=== PATIENT | female | born 1990 | race Caucasian/White ===

== ENCOUNTER 2021-08-25 08:06 | Outpatient (REF) | payer OTHER, SELFPAY ==
[2021-08-25 11:37] LABS: Hematocrit 45.3 % (37.0-47.0); Hemoglobin 14.8 g/dl (12.0-16.0); Mean Corpuscular HGB Conc 32.7 g/dl (31.0-35.0); Mean Corpuscular Hemoglobin 28.5 pg (27.0-33.0); Mean Corpuscular Volume 87.1 fL (80.0-98.0); Mean Platelet Volume 11.5 fL (9.4-12.3); Platelet Count 278 X10*3/uL (160-400); Red Cell Distribution Width 12.4 % (11.0-16.0); White Blood Count 6.6 X10*3/uL (4.8-10.8)
[2021-08-25 11:48] LABS: Alanine Aminotransferase 14 U/L (0-31); Albumin Level 4.3 g/dL (3.5-5.0); Alkaline Phosphatase 77 U/L (39-117); Anion Gap 10 (12-20); Aspartate Amino Transferase 13 U/L (5-31); Bilirubin Total 0.5 mg/dL (0.0-1.0); Blood Urea Nitrogen 8 mg/dL (9-16); Calcium 9.6 mg/dL (8.4-10.2); Carbon Dioxide 27 mmol/L (22-29); Chloride 105 mmol/L (96-108); Cholesterol 196 mg/dL; Estimated Glomerular Filt Rate > 60; Glucose Fasting 89 mg/dL (60-99); HDL Cholesterol 46 mg/dL; LDL Cholesterol Calculated 134 mg/dl; Potassium 4.4 mmol/L (3.3-5.1); Sodium 138 mmol/L (135-145); Total Protein 7.5 g/dL (6.5-8.0); Triglycerides 81 mg/dL
[2021-08-25 12:09] LABS: TSH reflex Free T4 2.48 uIU/mL (0.32-4.0)
== END 2021-08-25 08:07 | disposition home or self-care (01) ==
LOC: HO.WFDLDS 08:06
PROVIDERS: Visit Provider Hospitalist
DX: Z00.00 Encounter for general adult medical examination without abnormal findings (principal)
CPT/HCPCS: 36415; 80053; 80061; 84443; 85027

== ENCOUNTER 2021-09-10 09:09 | Outpatient (REF) | payer OTHER, SELFPAY ==
[2021-09-11 11:08] LABS: BV Int Neg Control Negative (Negative); BV Int Pos Control Positive (Positive)
[2021-09-11 12:53] LABS: CT PCR NOT DETECTED (Not Detect.); NG PCR NOT DETECTED (Not Detect.)
== END 2021-09-10 09:10 | disposition home or self-care (01) ==
LOC: HO.LAB 09:09
PROVIDERS: Visit Provider Advanced Practice Midwife
DX: Z01.419 Encounter for gynecological examination (general) (routine) without abnormal findings (principal); Z20.2 Contact with and (suspected) exposure to infections with a predominantly sexual mode of transmission; Z97.5 Presence of (intrauterine) contraceptive device
CPT/HCPCS: 87480; 87491; 87510; 87591; 87660

== ENCOUNTER 2021-11-18 10:57 | Outpatient (REF) | payer OTHER, SELFPAY ==
[2021-11-18 15:00] LABS: TSH reflex Free T4 2.78 uIU/mL (0.32-4.0)
== END 2021-11-18 10:58 | disposition home or self-care (01) ==
LOC: HO.WFDLDS 10:57
PROVIDERS: Visit Provider Hospitalist
DX: R22.1 Localized swelling, mass and lump, neck (principal)
CPT/HCPCS: 36415; 84443

== ENCOUNTER 2021-11-19 15:16 | Outpatient (REF) | payer OTHER, SELFPAY ==
--- NOTE | ~2021-11-19 | US_ITS ---
EXAMINATION: US SOFT TISSUE NECK CLINICAL INFORMATION: Localized swelling in the neck. COMPARISON: None TECHNIQUE: Ultrasound of the neck soft tissues is performed with high- frequency carpenter-scale imaging and color Doppler. FINDINGS: No cystic or solid abnormality is seen. There is no lymphadenopathy. The soft tissues are unremarkable. The left internal jugular vein is patent without abnormality. Limited visualization of the thyroid gland showed no overt abnormality. US/US soft tiss head and/or neck IMPRESSION: No soft tissue abnormality in the region of concern in the left neck. * If these findings persist or enlarge, short-term repeat targeted soft tissue ultrasound can be performed as clinically indicated to assess for change.
== END 2021-11-19 15:17 | disposition home or self-care (01) ==
LOC: HO.US 15:16
PROVIDERS: Visit Provider Hospitalist
DX: R22.1 Localized swelling, mass and lump, neck (principal)
CPT/HCPCS: 76536

== ENCOUNTER 2021-12-23 12:27 | Outpatient (REF) | payer OTHER, SELFPAY ==
[2021-12-23 14:34] LABS: HCG Quantitative < 2 mIU/mL
== END 2021-12-23 12:28 | disposition home or self-care (01) ==
LOC: HO.WFDLDS 12:27
PROVIDERS: Visit Provider Hospitalist
DX: N91.2 Amenorrhea, unspecified (principal)
CPT/HCPCS: 36415; 84702

== ENCOUNTER 2022-09-14 09:09 | Outpatient (REF) | payer OTHER, SELFPAY ==
[2022-09-14 15:25] LABS: CT PCR NOT DETECTED (Not Detect.); NG PCR NOT DETECTED (Not Detect.)
[2022-09-15 12:37] LABS: BV Int Neg Control Negative (Negative); BV Int Pos Control Positive (Positive)
[2022-09-16 22:54] LABS: HPV mRNA E6/E7 rflx Not Detected (Not Detected)
== END 2022-09-14 09:10 | disposition home or self-care (01) ==
LOC: HO.LNP 09:09
PROVIDERS: PCP Hospitalist; Visit Provider Advanced Practice Midwife
DX: Z01.419 Encounter for gynecological examination (general) (routine) without abnormal findings (principal); Z11.51 Encounter for screening for human papillomavirus (HPV); Z20.2 Contact with and (suspected) exposure to infections with a predominantly sexual mode of transmission
CPT/HCPCS: 0353U; 87480; 87510; 87624; 87660; 88142

== ENCOUNTER 2023-02-09 08:18 | Outpatient (AMB) | payer OTHER, SELFPAY ==
--- NOTE | 2023-02-09 08:28 | A.OFFVIS_ITS ---
Intake Vital Signs 02/09/23 08:31 Height 5 ft 9 in Weight 219 lb 8 oz BMI 32.4 BP 98/74 Blood Pressure Location Rt brachial Position Sitting Pulse 93 Pulse Source Pulse Oximeter Pulse Oximetry (%) 99 Oxygen Delivery Method Room Air Intake Visit Reasons: [id number] Intake Note: Patient presents for migraines. Patient states I've been getting them since I was a child they have gotten a little better but when i do get them I need to be in a dark room, my vision gets blurry and I'm very sensitive with sound and light. Allergies amoxicillin Allergy (Intermediate, Verified 02/09/23 08:33) Hives Penicillins Allergy (Intermediate, Verified 02/09/23 08:33) Hives mushroom Adverse Reaction (Intermediate, Verified 02/09/23 08:33) Itching Medication List - Last Reconciled 02/09/23 by MOSHE Mazariegos aripiprazole 2 mg PO DAILY buspirone 7.5 mg PO BID levonorgestrel (Kyleena) intrauterine misoprostol 200 mcg vaginal ONCE HPI HPI Comments History of Present Illness Details Right-handed 32-yr-old female presents for new pt evaluation of headache disorder and ? of seizure disorder. Pt reports she has had migraine since childhood- around 7-8 yrs old. As a child, she was having bouts of passing out which were attributed to severe migraine and dehydration. Syncope has not happened since childhood. More recently, she has been havingless frequent but more severe migraine attacks. Headache questionnaire: Preceding causes? None Previous work-up? None Typical headache characteristics: Prodrome symptoms? None Aura? Sometimes may see stars in her peripheral vision, rarely she will see yenny stars across her whole visual filed- seconds during beginning of headache. Location, quality, characteristics? Starts behind the left eye, can have a shooting pain from the left eye to right ear. May also have light seem brighter and hyperacusia. Then progresses into a band of throbbing/pressure pain- like her head is inflated. Sometimes at start of the migraine- she has a [place] phenomenon where it looks like everything is getting smaller through a hallway. Pain intensity? Usually 6-7/10. At worst 9-10/10 Associated symptoms? Photophobia, phonophobia, osmophobia, nausea, allodynia, brain fog, some dizziness. Focal weakness, Parethesias, Autonomic s/s? Some numbness/tingling in left eye region. More prone to drop things from her left hand. Postdrome? Residual s/s Triggers? Maybe not drinking enough. Any positional, valsalva, exertional, sexual activity triggers? None Menstrual triggers? Sometimes a small headache at onset of menses Time of day? Mid-afternoon Duration? 1/2 a day to 3 days. Frequency? 5 headache per month. One severe attack per month. How does headache impact your life? 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 Works in [employer] service for an [employer]. Current acute medication use/interventions: Tylenol Previous acute medication use: None Current preventative medication use: None Previous preventative medication use: None Non-pharmacological interventions: Ice, rest Other history of headache disorder? None History of musculoskeletal disorders or injury? Had a remote back injury- aggravated her sciatica while cheerleading at age [age]. History of concussion/head injury? One concussion at age 22- from cheerleading. History of mood disorder? Depression, anxiety. Being evaluated for bipolar- has a family h/o. History of sleep disorder? Sleep varies- can sleep about 5hrs and then wkaes up- not always able to fall back asleep. In the evening, easily dozes off. Believes she snores. History of respiratory disease? None History of CV disease? None History of coagulopathy? None History of endocrine or metabolic disease? None History of seizure? No known h/o seizure. She has episodes where all of a sudden she smells warm , f/b a slight headache. She has other episodes of microskeletal vibrations a/w zoning out (hears people but does not retain what they say). This lasts about 2 minutes. Not a/w headache. Once this occurred while she was standing, and she was able to sit down w/o incident. Afterwards, she feels like the wind was knocked out of her x's 5-10 minutes. This may occur every other month, but sometimes may repeat a few times in a week. This started about 5 yrs ago. History of GI disorder? Prone to diarrhea. Family planning? She has an IUD- is due to come out soon- no plans for children at this time. Family history of migraine or other headache disorder? 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 Sexual orientation: Straight/Heterosexual Gender identity: Female Cognitive needs: No Hearing needs: No Vision needs: No Female Reproductive History Menstrual Age of Menarche: 16 Review of Systems Const Details: See scanned ROS form Physical Exam Vital Signs: Last Vital Signs Pulse 93 02/09/23 08:31 BP 98/74 02/09/23 08:31 Pulse Ox 99 02/09/23 08:31 Oxygen Delivery Method Room Air 02/09/23 08:31 BMI result Body Mass Index 32.4 Const Orientation/consciousness: patient oriented x3 HEENT Head: Yes normocephalic Resp Effort & Inspection: normal respiratory effort and able to speak in complete sentences Neuro General: patient oriented x3 Cranial nerves: Yes CN's II-XII intact bilaterally Cognition (Neuro): normal cognition Gait exam (Neuro): Normal gait present Motor exam (neuro): 5/5 motor strength present throughout Deep tendon reflexes (DTR's): Right triceps reflex intensity grade: 2+, Left triceps reflex intensity grade: 2+, Rt Biceps (C5, C6): 2+, Left biceps reflex intensity grade: 2+, Right brachioradialis reflex intensity grade: 2+, Left brachioradialis reflex intensity grade: 2+, Right patellar reflex intensity grade: 2+ and Left patellar reflex intensity grade: 2+ Coordination: [id number] test normal, tandem gait normal and Romberg test negative Pupils: Normal pupillary reactivity/response: bilateral Psych Appearance: grossly normal Mental Status: mental status grossly normal Speech and movement: Normal speech and movement present Affect: normal affect Attitude: cooperative Thought process: Normal thought process present Assessment & Plan Assessment & Plan (1) Migraine with aura: Code(s): G43.109 - Migraine with aura, not intractable, without status migrainosus (2) Snoring: Code(s): R06.83 - Snoring (3) Excessive daytime sleepiness: Comment: ESS 10 Code(s): G47.19 - Other hypersomnia (4) Sleep disorder: Code(s): G47.9 - Sleep disorder, unspecified (5) Visual aura: Code(s): H53.9 - Unspecified visual disturbance (6) Olfactory hallucinations: Code(s): R44.2 - Other hallucinations (7) Altered mental status: Code(s): R41.82 - Altered mental status, unspecified Plan Pt advised to undergo brain MRI w/wo- to assess for central/epileptic etiologies of stereotypic episodes of AMS a/w vibration sensation, olfactory hallucination, migraine a/w [place] phenomenon. Pt advised to undergo EEG. Pt advised to undergo HST to assess for sleep apnea. For overall headache management: Discussed importance of good self-care, including but not limited to maintaining a healthy diet, adequate fluid intake, adequate sleep, and engaging in regular physical activity. For headache triggers: Track headaches, especially after any treatment regimen changes. Migraine [employer] is one of many headache tracking apps. For acute headache treatment: Discussed importance of taking acute medications at the first sign of headache, however stressed importance of avoiding acute medication overuse (especially with combined headache medications). Trial Sumatriptan 100mg tab, 1/2 - 1 tab (50-100mg) at onset of headache, may repeat in 2 hours. Max of 2 tabs (200mg) per 24 hours. May adjunct with OTC Tylenol 650mg q 4 hours, Ibuprofen 600mg q 6 hours, or Naproxen 440mg q 12 hrs prn. Reviewed potential adverse effects of triptans, including but not limited to nausea, fatigue, chest tightness/tingling (usually passes within a few minutes), medication overuse headaches. Previous acute migraine medication trials: Tylenol or Excedrin- ineffective. Acute migraine medication contraindications: None at this time For headache prevention medication: Discussed that preventative medications should be taken routinely as prescribed for best effect, it may take several weeks for full effect to take effect. Start Riboflavin 400mg qam Start Magnesium 400mg qhs- may hold for loose stools Previous migraine prevention medication trials: None Migraine prevention medication contraindications: Amitriptyline- would need psychiatry clerance d/t ? of bipolar d/o. Future considerations- Topiramate or Propranolol. Pt to follow-up in 3 months or sooner prn. Orders: Orders EEG electroencephalogram 02/09/23 G43.109 - Migraine with aura, not intractable, without status migrainosus, H53.9 - Unspecified visual disturbance, R41.82 - Altered mental status, unspecified, R44.2 - Other hallucinations MR head/brain wo/w con 02/09/23 G43.109 - Migraine with aura, not intractable, without status migrainosus, H53.9 - Unspecified visual disturbance, R41.82 - Altered mental status, unspecified, R44.2 - Other hallucinations RT home sleep study 02/09/23 G47.19 - Other hypersomnia, G47.9 - Sleep disorder, unspecified, R06.83 - Snoring Medications: New riboflavin (vitamin B2) 400 mg PO DAILY 30 tabs 6RF 30 days magnesium oxide may hold for loose stools 400 mg PO BEDTIME 30 tabs 6RF 30 days sumatriptan succinate 50 - 100 mg orally at onset of headache, may repeat in 2 hrs PRN; max 2 tabs per day or 4 tabs/week (may take with Ibuprofen) 12 tabs 6RF migraine headache 30 days Coding Level of Care Code New Pt Level 4 (62479) Diagnoses Migraine with aura G43.109 Snoring R06.83 Excessive daytime sleepiness G47.19 Sleep disorder G47.9 Visual aura H53.9 Olfactory hallucinations R44.2 Altered mental status R41.82
[2023-02-09 08:31] VITALS: BP 98/74; PULSE 93; O2SAT 99; BMI 32.4
== END 2023-02-09 09:36 | disposition home or self-care (01) ==
PROVIDERS: PCP Hospitalist; Visit Provider Nurse Practitioner Family
DX: G43.109 Migraine with aura, not intractable, without status migrainosus (principal); R06.83 Snoring; G47.19 Other hypersomnia; G47.9 Sleep disorder, unspecified; H53.9 Unspecified visual disturbance; R44.2 Other hallucinations; R41.82 Altered mental status, unspecified
CPT/HCPCS: 99204

== ENCOUNTER → 2023-02-09 08:18 | Outpatient (BNVA) | payer OTHER, SELFPAY | PROVIDERS: PCP Hospitalist; Visit Provider Nurse Practitioner Family ==

== ENCOUNTER 2024-01-06 08:26 | Outpatient (REF) | payer OTHER, SELFPAY ==
[2024-01-06 09:32] LABS: Cholesterol 227 mg/dL (<200); HDL Cholesterol 44 mg/dL (>40); LDL Cholesterol Calculated 158 mg/dL (<100); Triglycerides 129 mg/dL (<150)
[2024-01-06 10:57] LABS: Estimated Average Glucose 100 mg/dL; Hemoglobin A1c % 5.1 % (<6.0)
== END 2024-01-06 08:27 | disposition home or self-care (01) ==
LOC: HO.LAB 08:26
PROVIDERS: PCP Hospitalist; Visit Provider Registered Nurse
DX: Z79.899 Other long term (current) drug therapy (principal)
CPT/HCPCS: 36415; 80061; 83036

== ENCOUNTER 2024-02-21 14:46 | Outpatient (AMB) | payer OTHER, SELFPAY ==
--- NOTE | 2024-02-21 14:46 | A.OFFVIS_ITS ---
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: No Information Interpreted: clinical only Drift Miner: Drift Miner Present Allergies amoxicillin Allergy (Intermediate, Verified 02/21/24 14:46) Hives Penicillins Allergy (Intermediate, Verified 02/21/24 14:46) Hives mushroom Adverse Reaction (Intermediate, Verified 02/21/24 14:46) Itching Medication List - Last Reconciled 02/21/24 by Marylou Benedict CNM aripiprazole 2 mg PO DAILY buspirone 7.5 mg PO BID levonorgestrel (Kyleena) intrauterine magnesium oxide 400 mg PO BEDTIME 30 days riboflavin (vitamin B2) 400 mg PO DAILY 30 days Is last menstrual period known: Yes Last menstrual period: 02/19/24 HPI HPI Kyleena Removal Consult: Details: This is a tele visit to discuss patient's Kyleena and removing it it has many years now and she was going to remove it last year the before and she does not live what happened she was traumatized by the insertion process so the plan to replace it by using misoprostol by premedication ahead of time but now she just wants it out and she is hoping that maybe she could start pills she does get migraines with aura as though they have been better so she does not need to take any medication unless they occur and they have not recently but she does have a contraindication to have OCPs she does have anxiety and depression and she is on medication for that which is of mild contraindication but not absolute. She does take medication for that every evening so she thinks she would be better taking pills currently she is not contraceptive thing she is on that 3rd day of her period right now so today would be a perfect days her to start pills and I am going to prescribe progestin only pills for her and I reviewed that they can be on for giving if she misses a pill so she should use a backup method if she ever does. She still wants the Kyleena it removed and if that can be arranged to remove this week while her period is on that would be great or it could be removed at any time or with her next period we will see her in about 3 months for her pill check visit as well. 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 Sexual orientation: Straight/Heterosexual Gender identity: Female Cognitive needs: No Hearing needs: No Vision needs: No Female Reproductive History Menstrual Age of Menarche: 16 Duration of menses: 3-5 days Date of last menstrual period: 02/19/24 control method: progestin IUCD Telehealth Telehealth Telehealth Platform: Telephone Location of provider rendering services: practice address Location of patient: address on file Patient Identification confirmed using: Name, : Yes Telehealth method: voice only Patient verbally consented to treatment: Yes Patient verbally consented to billing insurance company: Yes Patient informed of any privacy concerns related to visit: Yes Minutes spent on Phone/Video with Pt.: 25 Assessment & Plan Assessment & Plan (1) Presence of 13.5 mg levonorgestrel-releasing intrauterine device (IUD): Comment: Inserted 2014, periods and midcycle ovulatory symptoms have returned. Replacement is planned with next menses. 09/14/22-periods have become very regular in last year, using pullout currently. previous insertion was traumatic will definitely plan replacement with menses and with additional misoprostol dose before procedure,; 02/21/2024 patient now wants it will start POPs instead. We will remove Kyleena when possible, with menses if easily arranged, but not necessary. Code(s): Z97.5 - Presence of (intrauterine) contraceptive device Category: Social Hx (2) Cervical cancer screening: Comment: had neg pap 2019 elsewhere, next pap 2022-done 09/14/22= neg w neg hpv. Code(s): Z12.4 - Encounter for screening for malignant neoplasm of cervix Category: Medical Plan This is a tele visit to discuss patient's Kyleena and removing it it has many years now and she was going to remove it last year the before and she does not live what happened she was traumatized by the insertion process so the plan to replace it by using misoprostol by premedication ahead of time but now she just wants it out and she is hoping that maybe she could start pills she does get migraines with aura as though they have been better so she does not need to take any medication unless they occur and they have not recently but she does have a contraindication to have OCPs she does have anxiety and depression and she is on medication for that which is of mild contraindication but not absolute. She does take medication for that every evening so she thinks she would be better taking pills currently she is not contraceptive thing she is on that 3rd day of her period right now so today would be a perfect days her to start pills and I am going to prescribe progestin only pills for her and I reviewed that they can be on for giving if she misses a pill so she should use a backup method if she ever does. She still wants the Kyleena it removed and if that can be arranged to remove this week while her period is on that would be great or it could be removed at any time or with her next period we will see her in about 3 months for her pill check visit as well. Medications: New norethindrone (contraceptive) 0.35 mg PO DAILY 84 tabs 3RF Coding Level of Care Code Tele Est Pt Level 3 (27534) Diagnoses Presence of 13.5 mg levonorgestrel-releasing intrauterine device (IUD) Z97.5 Cervical cancer screening Z12.4 Time Spent (min) 35 Comment 2cr/25 speaking w pt/8 charting
== END 2024-02-21 15:51 | disposition home or self-care (01) ==
LOC: HO.HWSM 14:46
PROVIDERS: PCP Hospitalist; Visit Provider Advanced Practice Midwife
DX: Z97.5 Presence of (intrauterine) contraceptive device (principal); Z12.4 Encounter for screening for malignant neoplasm of cervix
CPT/HCPCS: 99213

== ENCOUNTER 2024-03-14 10:53 | Outpatient (AMB) | payer OTHER, SELFPAY ==
[2024-03-14 11:01] VITALS: BP 110/68; BMI 34.7
--- NOTE | 2024-03-14 11:01 | A.OFFVIS_ITS ---
Vital Signs 03/14/24 11:01 Height 5 ft 9 in Weight 235 lb BMI 34.7 BP 110/68 Intake Visit Reasons: IUD removal/pill start Legal Support Assistant Required: No Legal Support Assistant Services: Legal Support Assistant Present Information Interpreted: clinical only General Counsel: General Counsel Present Allergies amoxicillin Allergy (Intermediate, Verified 03/14/24 11:04) Hives Penicillins Allergy (Intermediate, Verified 03/14/24 11:04) Hives mushroom Adverse Reaction (Intermediate, Verified 03/14/24 11:04) Itching Medication List - Last Reconciled 03/14/24 by Marylou Benedict CNM aripiprazole 2 mg PO DAILY buspirone 7.5 mg PO BID levonorgestrel (Kyleena) intrauterine magnesium oxide 400 mg PO BEDTIME 30 days norethindrone (contraceptive) 0.35 mg PO DAILY riboflavin (vitamin B2) 400 mg PO DAILY 30 days Is last menstrual period known: Yes Last menstrual period: 02/19/24 HPI HPI IUD removal/pill start: Details: Patient is here to remove her Kyleena IUD she definitely wants it removed and she is become very anxious about anticipating the pain of this what she wants it removed because it needs to be. She did not start the control pills yet because her pharmacy did not call her to say they were ready and she only recently pick them up. She has been getting her regular periods and she feels like it is due next and her. Deya tracker tells her that as well she has been under a lot of stress with family members fighting and she is ?the Appling of her family? and it is all very stressful. She has not been using anything else for control at this time but she very much wants this out as it has anyway. She takes Abilify every night and is very good with taking that and so her plan is to take the control pills with it at the same time. She does get migraines so the prescription that she has been given is for norethindrone OCPs which do not have estrogen and we reviewed this again today. 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 Sexual orientation: Straight/Heterosexual Gender identity: Female Cognitive needs: No Hearing needs: No Vision needs: No Female Reproductive History Menstrual Age of Menarche: 16 Duration of menses: 8-10 days Date of last menstrual period: 02/19/24 control method: progestin IUCD Total pregnancies: 0 Full term: 0 Date of last pap smear: 09/15/22 (negative) Physical Exam Vital Signs: Last Vital Signs BP 110/68 03/14/24 11:01 BMI result Body Mass Index 34.7 Office Procedures IUD Insert/Removal Details Details: Discussed patient's concerns and anxiety about potential for painful procedure and other stressors in patient's life. At her request proceeded to removal of Kyleena IUD speculum placed strings easily visible strings grasped with ring forceps and is patient gave 1 cough Kyleena IU S was easily removed small amount of bleeding noted patient tolerated procedure very well and said it was not that bad . [id number] Removal Procedure code (CPT) selection complete Results AMB Test Urine AMB Test Urine Negative Last Edit by Ignacio Moreno CMA on 03/14/24 11:27 Results Reviewed Results Reviewed: Laboratory Last Values [facility] Negative 03/14/24 11:26 Assessment & Plan Assessment & Plan (1) Anxiety associated with depression: Code(s): F41.8 - Other specified anxiety disorders Category: Medical (2) Well woman exam with routine gynecological exam: Code(s): Z01.419 - Encounter for gynecological examination (general) (routine) without abnormal findings Category: Medical (3) Cervical cancer screening: Comment: had neg pap 2019 elsewhere, next pap 2022-done 09/14/22= neg w neg hpv. Code(s): Z12.4 - Encounter for screening for malignant neoplasm of cervix Category: Medical (4) Presence of 13.5 mg levonorgestrel-releasing intrauterine device (IUD): Comment: Inserted 2014, periods and midcycle ovulatory symptoms have returned. Replacement is planned with next menses. 09/14/22-periods have become very regular in last year, using pullout currently. previous insertion was traumatic will definitely plan replacement with menses and with additional misoprostol dose before procedure,; 02/21/2024 patient now wants it will start POPs instead. We will remove Kyleena when possible, with menses if easily arranged, but not necessary.; removed 03/14/2024, to start her own POPs tonight norethindrone only OCP. Code(s): Z97.5 - Presence of (intrauterine) contraceptive device Category: Social Hx (5) BCP ( control pills) initiation: Comment: Norethindrone 2.35 mg to start tonight,(history of migraines) Code(s): Z30.011 - Encounter for initial prescription of contraceptive pills Category: Medical Plan Patient is here to remove her Kyleena IUD she definitely wants it removed and she is become very anxious about anticipating the pain of this what she wants it removed because it needs to be. She did not start the control pills yet because her pharmacy did not call her to say they were ready and she only rece ntly pick them up. She has been getting her regular periods and she feels like it is due next and her. Deya tracker tells her that as well she has been under a lot of stress with family members fighting and she is ?the Appling of her family? and it is all very stressful. She has not been using anything else for control at this time but she very much wants this out as it has anyway. She takes Abilify every night and is very good with taking that and so her plan is to take the control pills with it at the same time. She does get migraines so the prescription that she h as been given is for norethindrone OCPs which do not have estrogen and we reviewed this again today. I sent her OCPs to her pharmacy again to ensure she will have enough for year we will see her in about 3 months to check her blood pressure see how she is doing on the pills I recommend she take 1 every single day and also use the little day of the week sticker place on it and she is going to start her pills tonight with her other medication. See the procedure section for the remove which went well, Patient was shown her Kyleena. She may take ibuprofen or Tylenol p.r.n. for cramping. If she sees another provider in the meantime at 3 months that visit may suffice if she is doing well on the pills and her blood pressure is within normal limits and she is not having any negative side effects., Discussed all the emotional challenges that she has been dealing with and that she is handling everything very well and she could also be experiencing some premenstrual emotional lability as well and this is all normal as well. Orders: Orders AMB HCG Urine Test Today Z32.02 - Encounter for test, result negative AMB IUD Insertion/Removal - Patient Supply Today F41.8 - Other specified anxiety disorders, Z01.419 - Encounter for gynecological examination (general) (routine) without abnormal findings, Z12.4 - Encounter for screening for malignant neoplasm of cervix, Z30.011 - Encounter for initial prescription of contraceptive pills, Z30.430 - Encounter for insertion of intrauterine contraceptive device, Z97.5 - Presence of (intrauterine) contraceptive device Medications: Refilled norethindrone (contraceptive) 0.35 mg PO DAILY 84 tabs 4RF Coding Level of Care Code Est Pt Level 3 (72037) Diagnoses Anxiety associated with depression F41.8 Well woman exam with routine gynecological exam Z01.419 Cervical cancer screening Z12.4 Presence of 13.5 mg levonorgestrel-releasing intrauterine device (IUD) Z97.5 BCP ( control pills) initiation Z30.011 CPT Codes Details - CPT: 08240-ZXJ Removal ([id number])
== END 2024-03-14 13:20 | disposition home or self-care (01) ==
LOC: HO.HWSM 10:54
PROVIDERS: PCP Hospitalist; Visit Provider Advanced Practice Midwife
DX: Z30.09 Encounter for other general counseling and advice on contraception (principal); Z30.011 Encounter for initial prescription of contraceptive pills; Z30.432 Encounter for removal of intrauterine contraceptive device; F41.8 Other specified anxiety disorders; Z32.02 Encounter for pregnancy test, result negative
CPT/HCPCS: 58301; 99213

== ENCOUNTER → 2024-03-14 10:53 | Outpatient (BNVA) | payer OTHER, SELFPAY | PROVIDERS: PCP Hospitalist; Visit Provider Advanced Practice Midwife | DX: Z30.432 Encounter for removal of intrauterine contraceptive device (principal); Z30.011 Encounter for initial prescription of contraceptive pills; F41.8 Other specified anxiety disorders | CPT/HCPCS: 58301; 81025 ==

== ENCOUNTER 2024-06-12 11:25 | Outpatient (AMB) | payer OTHER, SELFPAY ==
[2024-06-12 11:33] VITALS: BP 110/68; BMI 34.7
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
--- OUTSIDE RECORDS SUMMARY | 2024-06-12 14:03 | XMS_ITS | Clinical Summary ---
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 Primary Care Provider Unavailabl e Social History Tobacco Use Types Packs/Day Years Used Date Smoking Tobacco: Never Assessed Comments Unknown Sex and Gender Information Value Date Recorded Sex Assigned at Not on file Legal Sex Female 1:36 PM EST Gender Identity Not on file Sexual Orientation Not on file Plan of Treatment Health Maintenance Due Date Last Done Comments Depression: Screening Annual ly using PHQ-2/9 in Adults 18 yrs or above (or HM Modifier)([facility]) 2010 Hepatitis C Virus Infection in Adolescents and Adults: Screening (or Modifier) ([facility]) 2010 SDOH Screening Reminder: Ibis ually for all adults ([facility]) 2010 Tobacco Smoking Cessation: i n Adults excluding Women: Behavioral and Pharmacotherapy Interventions ([facility]) 2010 DTaP/Tdap/Td Vaccines ([facility]) (1 - Tdap) 2011 Lipid Screening: Once for Wo men aged 20 to 45 yrs ([facility]) 2012 Cervical Cancer Screenin 1-65 yrs of age (or Modifier) 2013 Cervical Cancer Screening: P ap every 3 yrs pts age 21-65 2013 Cervical Cancer: Pap Screeni ng with Modifier timing ([facility]) 2013 Cervical Cancer: hrHPV alone or with cotesting Pap for Pts 30-65yrs screening every 5yrs ([facility]) 2013 Flu Vaccination: Yearly for ages 18mos through 64 years (or Modifier)([facility]) 11/17/2023 COVID-19 Vaccine Screening: Initial Series and Booster Status ([facility]) (2023- season) 2023 Zoster/Shingles Vaccine Seri es Screening: Adults aged 18+ yrs (or HM Modifiers)([facility]) (1 of 2) 2042 Pneumococcal Vaccination Scr eening: Pts 0-19 & 19-64 yrs of age ([facility]) Aged Out No longer eligible based on patient's age to complete this topic Medical Devices Not on file Insurance [place] [id number] Care Teams License Distributor Relationship Specialty Start Date End Date No, Pcp, POLYSOMNOGRAPHY TECHNOLOGIST N/A Do not use PCP - General Family Medicine 02/22/20
== END 2024-06-12 13:02 | disposition home or self-care (01) ==
PROVIDERS: PCP Hospitalist; Visit Provider Advanced Practice Midwife
DX: Z12.4 Encounter for screening for malignant neoplasm of cervix (principal); Z30.09 Encounter for other general counseling and advice on contraception; N92.6 Irregular menstruation, unspecified; Z91.410 Personal history of adult physical and sexual abuse; Z32.02 Encounter for pregnancy test, result negative
CPT/HCPCS: 99213

== ENCOUNTER → 2024-06-12 11:25 | Outpatient (BNVA) | payer OTHER, SELFPAY | PROVIDERS: PCP Hospitalist; Visit Provider Advanced Practice Midwife | DX: Z30.09 Encounter for other general counseling and advice on contraception (principal); N92.6 Irregular menstruation, unspecified; Z91.410 Personal history of adult physical and sexual abuse | CPT/HCPCS: 81025 ==

== ENCOUNTER 2024-10-31 13:07 | Outpatient (AMB) | payer OTHER, SELFPAY ==
[2024-10-31 13:09] VITALS: BP 108/84; BMI 35.4
--- NOTE | 2024-10-31 13:09 | MHC.PC.OV ---
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 Required: No Accompanied by: Self / Same As Patient Allergies amoxicillin Allergy (Intermediate, Verified 10/31/24 13:16) Hives Penicillins Allergy (Intermediate, Verified 10/31/24 13:16) Hives mushroom Adverse Reaction (Intermediate, Verified 10/31/24 13:16) Itching Medication List - Last Reconciled 10/31/24 by Kylah Hughes PA-C aripiprazole (Abilify) 10 mg PO BEDTIME buspirone 7.5 mg PO BID magnesium oxide 400 mg PO BEDTIME 30 days norethindrone (contraceptive) (Veena) 0.35 mg PO DAILY sumatriptan succinate take 1 tab at onset of headache; if no relief may repeat 1 tab after at least 2 hrs; max = 4 tabs/24 hr PO Tobacco use date assessed: 10/31/24 Dental Screening Dental Screen Date: 10/31/24 Did you have a dental visit in the last 12 months?: Yes Did you have a dental problem in the last 6 months where you did not have access to dental care?: No Was dental information given to patient?: 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 Presenting with a wellness check and management of chronic conditions. Anxiety and depression are managed with aripiprazole and buspirone, which have been effective in improving symptoms. The patient experiences migraines with aura, characterized by visual disturbances, occurring approximately one to two days per month. Sumatriptan is prescribed for acute migraine management, with Excedrin as an fzkm-ymh-dsharwn option. Family history includes rhabdomyosarcoma in the father and cardiovascular disease on the maternal side. 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 1. Little interest or pleasure in doing things: not at all 2. Feeling down, depressed, or hopeless: not at all 3. Trouble falling or staying asleep, or sleeping too much: several days 4. Feeling tired or having little energy: several days 5. Poor appetite or overeating: not at all 6. Feeling bad about yourself - or that you are a failure or have let yourself or your family down: not at all 7. Trouble concentrating on things, such as reading the newspaper or watching television: not at all 8. Moving or speaking so slowly that other people could have noticed. Or the opposite - being so fidgety or restless that you have been moving around a lot more than usual: not at all 9. Thoughts that you would be better off or of hurting yourself in some way: not at all Total score: 2 Depression Screening Interpretation: Negative Depression Screening Done: Yes 39998 - PHQ-9 Billing: Yes Source: Developed by Drs. Chetan Dugan, Hollie Cage, Mariano Marsh and colleagues, with an educational camilo from [employer]. Thrive Questionnaire Date Thrive assessed: 10/31/24 I am a: Patient What is your living situation today?: I have a steady place to live Within the past 12 months, did the food you bought not last and you didn't have the money to get more?: Never true Within the past 12 months, did you worry whether your food would run out before you got money to buy more?: Never true Do you have trouble paying for medicines?: No Do you have trouble getting transportation to medical appointments?: No Do you have trouble paying your heating and electricity bill?: No Do you have trouble taking care of your child, family member or friend?: No Do you have trouble with day-to-day activities such as bathing, preparing meals, shopping, managing finances, etc.?: No Are you currently unemployed and looking for a job?: No Are you interested in more education?: No Please select the resources that you would like help with: None Currently or been in a relationship where the following occur: No concerns reported THRIVE Score: 0 AUDIT C Alcohol Use Questionnaire (AUDIT-C) 1. How often do you have a drink containing alcohol?: Monthly or less 2. How many drinks containing alcohol do you have on a typical day when you are drinking?: 1 or 2 3. How often do you have six or more drinks on one occasion?: Never Total Score: 1 KIRA-7 AMB Questionnaire KIRA-7 Date KIRA - 7 assessed: 10/31/24 Feeling nervous, anxious, or on edge: 1 = Several days Not being able to stop or control worryin = Several days Worrying too much about different things: 1 = Several days Trouble relaxin = Several days Being so restless that it is hard to sit still: 0 = Not at all Becoming easily annoyed or irritable: 1 = Several days Feeling afraid as if something awful might happen: 1 = Several days Total KIRA-7 score (0-4 normal; 5-9 mild; 10-14 moderate; 15-21 severe): 6 Source: Developed by Drs. Chetan Dugan, Hollie Cage, Mariano Marsh and colleagues, with an educational camilo from [employer]. KIRA-7 Assessment Billing KIRA-7 Assessment Tool: KIRA-7 Assessment 91489 Review of Systems Const Denies body aches, Denies chills, Denies fever(s), Denies headache(s) and Denies poor appetite Eyes Reports no additional complaints ENT Denies dysphagia, Denies dizziness, Denies headache(s) and Denies odynophagia Card Denies chest pain, Denies syncope, Denies edema, Denies irregular heart rhythm, Denies lightheadedness and Denies dyspnea Resp Denies cough and Denies dyspnea GI Denies abdominal pain, Denies constipation, Denies dysphagia, Denies diarrhea, Denies nausea, Denies odynophagia and Denies vomiting Reports no additional complaints Musc Reports no additional complaints and Denies abnormal gait Skin/Breast Reports system reviewed and no additional complaints, except as documented Neuro Denies abnormal gait, Denies dizziness, Denies syncope and Denies headache(s) Psych Reports no additional complaints Physical exam (Primary Care) Vital Signs: Last Vital Signs BP 108/84 10/31/24 13:09 BMI result Body Mass Index 35.4 Tobacco/Smoking Status: Tobacco use Status Tobacco use date assessed 10/31/24 10/31/24 13:13 Patient Tobacco Use Status Never used Tobacco 10/31/24 13:13 PHQ-9: PHQ-9 Score PHQ-9: Total score 2 10/31/24 13:23 Depression Screening Interpretation: Negative Thrive Assessment: Date of Thrive Assessment Date Thrive assessed 10/31/24 10/31/24 13:14 Currently or been in a relationship where the following occur: No concerns reported Const General: cooperative, healthy appearing, comfortable and no acute distress Orientation/consciousness: patient oriented x3 HENMT Head: Yes normocephalic Ears: hearing grossly normal bilaterally General nose exam: Normal external nose present Eyes General: appearance normal, both eyes and all related structures Conjunctivae: conjunctivae normal Neck Neck: Yes full ROM and Yes no lymphadenopathy Resp Effort & Inspection: normal respiratory effort Auscultation: clear to auscultation bilaterally, no crackles, no rales, no rhonchi and no wheezes Cardio Rate: regular rate Rhythm: regular rhythm Skin General skin exam: no rashes or lesions noted Neuro General: patient oriented x3 Gait exam (Neuro): Normal gait present Extrem General: Yes normal to inspection, Yes full ROM and No edema Psych Affect: normal affect Attitude: cooperative Insight: Good insight present (Psych) Judgement: Good judgement present (Psych) Coding Level of Care Code New Pt Level 4 (34408) Diagnoses Anxiety associated with depression F41.8 Migraine with aura G43.109 Cervical cancer screening Z12.4 Obesity (BMI 30-39.9) E66.9 Hypercholesterolemia E78.00 Additional Codes KIRA-7 Assessment Billing - KIRA-7 Assessment Tool: KIRA-7 Assessment 48863 ([id number]) PHQ-9 - 41988 - PHQ-9 Billing: Yes ([id number]) Assessment & Plan Assessment & Plan (1) Anxiety associated with depression: Comment: [facility] Zoila Romano every 3 months, therapist every 2 weeks Code(s): F41.8 - Other specified anxiety disorders Category: Medical Plan: Continue to follow with [facility] for counseling and medication management. She feels her symptoms are well managed at this time. (2) Migraine with aura: Code(s): G43.109 - Migraine with aura, not intractable, without status migrainosus Category: Medical Plan: For patient's migraines she typically will use Excedrin 1-2 times per month with good benefit. She was previously on sumatriptan and did find this beneficial. Plan to recent sumatriptan to pharmacy and follow up at next visit. (3) Cervical cancer screening: Comment: had neg pap 2019 elsewhere, next pap 2022-done 09/14/22= neg w neg hpv. Code(s): Z12.4 - Encounter for screening for malignant neoplasm of cervix Category: Medical Plan: Continue to follow with [facility] resident care technician (4) Obesity (BMI 30-39.9): Code(s): E66.9 - Obesity, unspecified Category: Medical Plan: Healthy diet and regular exercise is encouraged. (5) Hypercholesterolemia: Code(s): E78.00 - Pure hypercholesterolemia, unspecified Category: Medical Plan: Avoid foods that are high in cholesterol such as red meat, fried foods, eggs and baked goods. Triglyceride goal of less than 150 and LDL goal of less than 130. Discussed dietary modification and regular exercise plan to redraw labs. Plan The patient will continue with current medications for anxiety and depression, including aripiprazole and buspirone, which have been effective in symptom management. For migraine management, sumatriptan has been prescribed for acute episodes, with instructions to take at the onset of symptoms. Excedrin can be used as an adjunctive [id number]-[id number] option. Preventative measures include ordering blood work to monitor cholesterol and diabetes risk, with dietary recommendations provided to manage cholesterol levels. The patient is encouraged to engage in regular exercise for cardiovascular health and weight management. Follow-up is planned in four months to review blood work results and assess the effectiveness of current management strategies. This note was constructed using voice recognition software. While every effort has been made to ensure accuracy and automation controls engineer, still areas may have been included sometimes these areas may affect the content or meeting of the given symptoms. Total time spent caring for the patient today was 30 minutes. This includes time spent before the visit reviewing the chart, time spent during the visit, and time spent after the visit and documentation. Patient was informed and verbally consented to the use of an ambient scribe for clinic note documentation during this visit. Orders: Orders Comprehensive Met. Panel Today F41.8 - Other specified anxiety disorders, G43.109 - Migraine with aura, not intractable, without status migrainosus Complete Blood Count Auto Diff Today G43.109 - Migraine with aura, not intractable, without status migrainosus Free T4 (Free Thyroxine) Today Z13.29 - Encounter for screening for other suspected endocrine disorder Vitamin B12 and Folate Today Z13.21 - Encounter for screening for nutritional disorder Lipid Panel Today Z13.220 - Encounter for screening for lipoid disorders TSH reflex Free T4 Today Z13.29 - Encounter for screening for other suspected endocrine disorder Vitamin D 25-OH Total Today Z00.00 - Encounter for general adult medical examination without abnormal findings Hemoglobin A1c Today Z13.1 - Encounter for screening for diabetes mellitus Medications: New sumatriptan succinate take 1 tab at onset of headache; if no relief may repeat 1 tab after at least 2 hrs; max = 4 tabs/24 hr PO 30 tabs 0RF
--- OUTSIDE RECORDS SUMMARY | 2024-10-31 13:58 | XMS_ITS | Clinical Summary ---
Author Organization 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) (1 - Tdap) 2011 Cervical Cancer Screenin 1-65 yrs of age (or Modifier) 2013 Cervical Cancer Screening: P ap every 3 yrs pts age 21-65 2013 Cervical Cancer: Pap Screeni ng with Modifier timing ([facility]) 2013 Cervical Cancer: hrHPV alone or with cotesting Pap for Pts 30-65yrs screening every 5yrs ([facility]) 2013 COVID-19 Vaccine Screening: Initial Series and Booster Status ([facility]) ( - 2023- season) 2023 Flu Vaccination: Yearly for ages 18mos through 64 years (or Modifier)([facility]) 11/16/2024 Zoster/Shingles Vaccine Seri es Screening: Adults aged 18+ yrs (or HM Modifiers)([facility]) (1 of 2) 2042 Pneumococcal Vaccination Scr eening: Pts 0-19 & 19-49 yrs of age ([facility]) Aged Out No longer eligible based on patient's age to complete this topic Medical Devices Not on file Insurance [employer] Care Teams Loan Secretary Relationship Specialty Start Date End Date No, Pcp, ELEMENTARY SPANISH TEACHER N/A Do not use PCP - General Family Medicine 02/22/20
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
== END 2024-10-31 13:55 | disposition home or self-care (01) ==
LOC: HO.HMCH 13:08
PROVIDERS: PCP Hospitalist
DX: G43.109 Migraine with aura, not intractable, without status migrainosus (principal); F41.8 Other specified anxiety disorders; E66.9 Obesity, unspecified; Z68.35 Body mass index [BMI] 35.0-35.9, adult; E78.00 Pure hypercholesterolemia, unspecified

== ENCOUNTER → 2024-10-31 13:07 | Outpatient (BNVA) | payer OTHER, SELFPAY | PROVIDERS: PCP Hospitalist | DX: Z00.00 Encounter for general adult medical examination without abnormal findings (principal); G43.909 Migraine, unspecified, not intractable, without status migrainosus; F41.8 Other specified anxiety disorders; G43.109 Migraine with aura, not intractable, without status migrainosus; E66.9 Obesity, unspecified; E78.00 Pure hypercholesterolemia, unspecified; Z68.35 Body mass index [BMI] 35.0-35.9, adult | CPT/HCPCS: 96127 ==